=== PATIENT | female | born 1965 | race Caucasian/White ===

== ENCOUNTER → 2021-12-11 09:41 | Outpatient (CLI) | payer OTHER, SELFPAY ==
--- NOTE | 2021-12-11 09:47 | DI.CT.S_ITS ---
PROCEDURE: CT SINUS SCREEN WO CON INDICATIONS: POSTNASAL DRIP/PANSINUSITIS/FACIAL PAIN TECHNIQUE: Noncontrast 3.0 mm axial images acquired from the frontal sinuses to the mid-sella, with coronal and sagittal reformats. For radiation dose reduction, the following was used: automated exposure control, adjustment of mA and/or kV according to patient size. COMPARISON: None. FINDINGS: Image quality: Excellent. Minimal mucosal thickening noted in the floor of the left maxillary sinus. Small left maxillary sinus mucous retention cyst is noted. No air-fluid levels are identified. The ostiomeatal units are patent bilaterally. Left Bharath air cell is noted. No osseous thickening, osseous remodeling or osseous erosive changes. Nasal septum is deviated to the right. No jenny bullosa or paradoxical turbinates. Type 2 cribriform plate is noted. No ethmoid roof anatomy variance. Anterior ethmoid artery notches are protected bilaterally. No frontal recess cells. IMPRESSION: 1. Minimal mucosal thickening in the left maxillary sinus. 2. Small left maxillary sinus mucous retention cyst. 3. No paranasal sinus air-fluid levels. Dictated by: Kimberly Tellez MD, PhD on 12/11/2021 at 14:08 Approved by: Kimberly Tellez MD, PhD on 12/11/2021 at 14:12
== END ==
PROVIDERS: Referring Provider Otolaryngology; Visit Provider Otolaryngology
DX: J32.4 Chronic pansinusitis (principal); J34.1 Cyst and mucocele of nose and nasal sinus; R09.82 Postnasal drip; R51.9 Headache, unspecified
CPT/HCPCS: 70486

== ENCOUNTER → 2022-10-08 16:20 | Outpatient (CLI) | payer OTHER, SELFPAY ==
--- NOTE | 2022-10-08 16:21 | DI.RAD.S_ITS ---
PROCEDURE: XR TOE RT MIN 2V INDICATIONS: Toe injury, 3rd digit TECHNIQUE: Three views of the 3rd toe(s) acquired. COMPARISON: None. FINDINGS: Bones: No fractures or dislocations. No suspicious bony lesions. Soft tissues: No suspicious soft tissue densities. IMPRESSION: No visible fractures. Dictated by: Jessica Jacobo M.D. on 10/08/2022 at 22:31 Approved by: Jessica Jacobo M.D. on 10/08/2022 at 22:32
== END ==
PROVIDERS: Referring Provider Nurse Practitioner Family; Visit Provider Nurse Practitioner Family
DX: S99.921A Unspecified injury of right foot, initial encounter (principal); X58.XXXA Exposure to other specified factors, initial encounter
CPT/HCPCS: 73660

== ENCOUNTER → 2022-12-11 07:55 | Outpatient (CLI) | payer OTHER, SELFPAY ==
[2022-12-11 08:34] LABS: Add Manual Diff / Slide Review NO; Basophils Absolute Auto 0 /uL (0-100); Basophils Percent Auto 0.7 % (0-2); Eosinophils Absolute Auto 200 /uL (0-450); Eosinophils Percent Auto 3.5 % (2-4); Hematocrit 41.8 % (36-46); Hemoglobin 13.9 g/dL (12.0-16.0); Lymphocytes Absolute Auto 2200 /uL (1100-4500); Lymphocytes Percent Auto 35.3 % (25-40); Mean Corpuscular HGB Conc 33.3 % (30-36); Mean Corpuscular Hemoglobin 30.9 PG (26-34); Mean Corpuscular Volume 92.6 fL (80-100); Monocytes Absolute Auto 500 /uL (0-900); Monocytes Percent Auto 8.1 % (3-14); Neutrophils Absolute Auto 3300 /uL (1500-7000); Neutrophils Percent Auto 52.4 % (50-75); Platelet Count 193 X10^3/uL (150-400); Red Blood Cell Count 4.52 X10^6/uL (4.0-5.2); Red Cell Distribution Width 12.9 % (11.6-14.8); White Blood Cell Count 6.3 X10^3/uL (4.5-11.0)
[2022-12-11 09:12] LABS: Alanine Aminotransferase 23 IU/L (<35); Albumin 4.5 g/dL (3.5-5.0); Albumin Globulin Ratio 1.7 (1.0-2.8); Alkaline Phosphatase 54 U/L (38-126); Aspartate Aminotransferase 26 IU/L (14-36); BUN Creatinine Ratio 16.9 (6-22); Bilirubin Total 0.9 mg/dL (0.2-1.3); Blood Urea Nitrogen 12 mg/dL (7-17); Calcium 9.4 mg/dL (8.4-10.2); Carbon Dioxide 28 mmol/L (22-32); Chloride 101 mmol/L (98-107); Cholesterol 185 mg/dL (140-199); Estimated Glomerular Filt Rate > 60 mL/min (>60); Globulin 2.6 g/dL (1.7-4.1); Glucose 83 mg/dL (70-100); HDL Cholesterol 89 mg/dL (40-60); HEMOLYSIS < 15 (0-50); LDL Cholesterol Calculated 85 mg/dL (<100); Potassium 4.1 mmol/L (3.4-5.1); Sodium 140 mmol/L (137-145); Total Protein 7.1 g/dL (6.3-8.2); Triglycerides 56 mg/dL (35-150)
[2022-12-11 09:39] LABS: Thyroid Stimulating Hormone 1.14 uIU/mL (0.47-4.68)
[2022-12-11 09:58] LABS: Hep C Virus Ab w/Reflex Quant NEGATIVE s/c (NEGATIVE)
== END ==
PROVIDERS: PCP Naturopath; Referring Provider Naturopath; Visit Provider Naturopath
DX: Z00.00 Encounter for general adult medical examination without abnormal findings (principal); R53.83 Other fatigue
CPT/HCPCS: 36415; 80053; 80061; 84443; 85025; 86803

== ENCOUNTER → 2024-10-01 09:38 | Outpatient (CLI) | payer OTHER, SELFPAY ==
--- NOTE | 2024-10-01 09:42 | DI.MRI.S_ITS ---
PROCEDURE: MR LUMBAR SPINE WO CON INDICATIONS: LUMBAR RADICULOPATHY TECHNIQUE: Noncontrast sagittal T1 spin echo and T2 fast echo, sagittal STIR, and T2 fast spin echo through the lumbar spine. In cases with scoliosis, additional coronal T2 fast spin echo may be performed. COMPARISON: [facility] [place], [place], XR LUMBAR SPINE 2 OR 3 VIEWS, 09/20/2024, 8:49. FINDINGS: Image quality: Excellent. Alignment and Curvature: There is normal bony alignment. Bone Marrow: Marrow is of normal overall signal. No acute vertebral body compression fractures. Spinal Cord: Conus medullaris terminates at the L1 level. Visualized cord demonstrates normal signal and size. Paraspinous Soft Tissues: No paravertebral masses. Discs: Minimal desiccation is present L2-3. T12-L1: No disc bulge, spinal stenosis or foraminal narrowing. L1-L2: No disc bulge, spinal stenosis or foraminal narrowing. Minimal epidural lipomatosis. L2-L3: Mild disc bulge without spinal stenosis. Mild epidural lipomatosis. Ligamentum flavum hypertrophy is present. L3-L4: Mild disc bulge with minimal canal narrowing. Minimal left foraminal narrowing with facet and ligamentum flavum hypertrophy. Minimal epidural lipomatosis. L4-L5: Minimal disc bulge with effacement of the anterior thecal sac. Mild bilateral foraminal narrowing with facet and ligamentum flavum hypertrophy. L5-S1: Mild disc bulge without spinal stenosis. [id number] left foraminal narrowing with facet and ligamentum flavum hypertrophy. IMPRESSION: Mild degenerative changes including multilevel disc bulges and foraminal narrowing. Foraminal narrowing is most prominent L5-S1. Dictated by: Fiona Anaya M.D. on 10/02/2024 at 11:35 Approved by: Fiona Anaya M.D. on 10/02/2024 at 11:39
== END ==
PROVIDERS: PCP Naturopath; Referring Provider Orthopaedic Surgery; Visit Provider Orthopaedic Surgery
DX: M47.26 Other spondylosis with radiculopathy, lumbar region (principal); M47.27 Other spondylosis with radiculopathy, lumbosacral region; M51.16 Intervertebral disc disorders with radiculopathy, lumbar region; M51.17 Intervertebral disc disorders with radiculopathy, lumbosacral region; M48.061 Spinal stenosis, lumbar region without neurogenic claudication; M48.07 Spinal stenosis, lumbosacral region
CPT/HCPCS: 72148